=== PATIENT | female | born 1955 | race Two or more races ===

== ENCOUNTER 2019-01-11 00:48 | Emergency (ER) | payer MEDICARE, MEDICAID ==
[2019-01-11] MEDS ORDERED: Sodium Chloride 0.9% 1,000 ML IV ONE (01:21)
[2019-01-11] MEDS ORDERED: Acetaminophen/HYDROcodone 325-5 MG Tab PO ONE ×2 (01:30→04:50)
--- NOTE | 2019-01-11 01:30 | EDM.PDOC ---
ED HPI GENERAL MEDICAL PROBLEM - General Chief Complaint: General Stated Complaint: MEDICAL VIA [facility] Time Seen by Provider: 01/11/19 01:25 Source of Information: Reports: Patient, Old Records, RN History Limitations: Reports: No Limitations - History of Present Illness INITIAL COMMENTS - FREE TEXT/NARRATIVE: 63 yo female recently had knee replacement in [place] and is in a [facility] until she recovers and can return to her shelter. She has AODM and since entering the [facility] her blood sugars have been running high much of the time, possibly getting worse. She was sent to the [facility] for BS over 500 the last couple of times she was checked. Extra insulin has been given, but she is still running high. No fevers reported by the [facility]. Onset: Gradual Onset Date: 01/09/19 Duration: Day(s):, Getting Worse Location: Reports: Generalized Quality: Reports: Ache (L knee since her surgery) Severity: Moderate Improves with: Reports: Medication Worsens with: Reports: Movement Context: Reports: Other (recent L knee replacement) Associated Symptoms: Reports: Malaise. 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 below) (usual meds + sliding scale insulin) Left Knee Pain Score (Numeric/FACES): 10 - Related Data Allergies Allergy/AdvReac Type Severity Reaction Status Date / Time mesoridazine [Mesoridazine] Allergy Cannot Verified 04/29/18 07:32 Remember molindone [Molindone] Allergy Cannot Verified 04/29/18 07:32 Remember Penicillins Allergy Cannot Verified 04/29/18 07:32 Remember Home Meds: Home Meds Polyethylene Glycol 3350 [Miralax] 1 scoop PO DAILY 01/25/14 [History] atorvaSTATin [Lipitor] 20 mg PO DAILY 01/25/14 [History] cloZAPine [Clozaril] 450 mg PO BEDTIME 01/25/14 [History] Acetaminophen [Tylenol] 325 mg PO Q6HR PRN #1 tab 02/21/14 [Rx] Fenofibrate [Lofibra] 160 mg PO DAILY #1 tablet 02/21/14 [Rx] Levothyroxine [Synthroid] 50 mcg PO DAILY #1 tab 02/21/14 [Rx] Sertraline HCl [Zoloft] 50 mg PO DAILY #1 tablet 02/21/14 [Rx] Anastrozole 1 mg PO DAILY 09/19/15 [History] Ferrous Sulfate 325 mg PO BID 09/19/15 [History] Vitamin D 1,000 units PO DAILY 09/19/15 [History] Insulin Degludec [Tresiba Flextouch U-100] 30 unit SQ DAILY 04/29/18 [History] Aspirin 325 mg PO BID 01/11/19 [History] Brivaracetam [Briviact] 50 mg PO BID 01/11/19 [History] Hydrocodone/Acetaminophen [Hydrocodon-Acetaminophen 5-325] 1 tab PO ASDIRECTED PRN 01/11/19 [History] Insulin Aspart [NovoLOG] 0 - 10 unit SUBCNJ TID 01/11/19 [History] Pantoprazole Sodium [Protonix] 20 mg PO DAILY 01/11/19 [History] QUEtiapine Fumarate [Quetiapine Fumarate ER] 500 mg PO DAILY 01/11/19 [History] Past Medical History Cardiovascular History: Reports: High Cholesterol Genitourinary History: Reports: Renal Disease Musculoskeletal History: Reports: Osteoarthritis Psychiatric History: Reports: Mood Swings, Schizophrenia Endocrine/Metabolic History: Reports: Diabetes, Type II, Hypothyroidism, Other ( See Below) Other Endocrine/Metabolic History: psychogenic polydipsia - Past Surgical History Female Surgical History: Reports: Mastectomy Musculoskeletal Surgical History: Reports: Joint Replacement, Knee Replacement Social & Family History - Tobacco Use Smoking Status *Q: Former Smoker Used Tobacco, but Quit: Yes Month/Year Tobacco Last Used: 1963 - Caffeine Use Caffeine Use: Reports: Coffee, Soda - Recreational Drug Use Recreational Drug Use: No ED ROS GENERAL - Review of Systems Review Of Systems: See Below Constitutional: Reports: Malaise HEENT: Reports: No Symptoms Respiratory: Reports: No Symptoms Cardiovascular: Reports: No Symptoms Endocrine: Reports: High Glucose GI/Abdominal: Reports: No Symptoms : Reports: No Symptoms Musculoskeletal: Reports: Joint Pain (L knee pain since surgery) Skin: Reports: No Symptoms Neurological: Reports: No Symptoms Psychiatric: Reports: No Symptoms ED EXAM, GENERAL - Physical Exam Exam: See Below Exam Limited By: No Limitations General Appearance: Alert, WD/WN, No Apparent Distress, Lethargic Eye Exam: Bilateral Eye: Normal Inspection Ears: Normal External Exam, Normal Canal, Hearing Grossly Normal, Normal TMs Ear Exam: Bilateral Ear: Auricle Normal, Canal Normal, TM normal Nose: Normal Inspection, No Blood Throat/Mouth: Normal Lips, Normal Oropharynx, Normal Voice, No Airway Compromise , Other (dry oral mucosa) Head: Atraumatic, Normocephalic Neck: Normal Inspection Respiratory/Chest: No Respiratory Distress, Lungs Clear, Normal Breath Sounds, No Accessory Muscle Use Cardiovascular: Regular Rate, Rhythm, No Edema, Tachycardia GI/Abdominal: Normal Bowel Sounds, Soft, Non-Tender, No Distention Back Exam: Normal Inspection. No: CVA Tenderness (R), CVA Tenderness (L) Extremities: Normal Inspection, No Pedal Edema, Limited Range of Motion (L knee due to recent knee replacement), Increased Warmth (L knee). No: Normal Range of Motion, Non-Tender, Pedal Edema, Carissa's Sign, Redness Neurological: Alert, Oriented, CN II-XII Intact, Normal Cognition, No Motor/ Sensory Deficits Psychiatric: Normal Affect, Normal Mood Skin Exam: Warm, Dry, Intact, Normal Color, No Rash Lymphatic: No Adenopathy Course - Vital Signs Last Recorded V/S: Last Vital Signs Temp 36.8 C 01/11/19 00:59 Pulse 99 01/11/19 04:22 Resp 15 01/11/19 04:22 BP 142/83 H 01/11/19 03:27 Pulse Ox 96 01/11/19 04:22 - Orders/Labs/Meds Orders: Active Orders 24 hr Category Date Time Status Cardiac Monitoring [RC] .As Directed Care 01/11/19 01:22 Active Insulin Regular, Human [HumuLIN R] Med 01/11/19 04:45 Once 15 unit SUBCUT ONETIME ONE NS + KCl 20mEq/L [Normal Saline with 20 mEq KCl] 1,000 Med 01/11/19 02:45 Active ml IV ASDIRECTED Medication Orders Potassium Chloride/Sodium Chloride (Normal Saline With 20 Meq Kcl) 1,000 mls @ 500 mls/hr IV ASDIRECTED DARIO Last Admin: 01/11/19 02:46 Dose: 500 mls/hr Labs: Laboratory Tests 01/11/19 01/11/19 01/11/19 Range/Units 01:19 01:20 01:40 WBC 9.5 (4.5-11.0) K/uL RBC 3.94 (3.30-5.50) M/uL Hgb 10.5 L (12.0-15.0) g/dL Hct 33.2 L (36.0-48.0) % MCV 84 (80-98) fL MCH 27 (27-31) pg MCHC 32 (32-36) % Plt Count 371 (150-400) K/uL Sodium (140-148) mmol/L Potassium (3.6-5.2) mmol/L Chloride (100-108) mmol/L Carbon Dioxide (21-32) mmol/L Anion Gap (5.0-14.0) mmol/L BUN (7-18) mg/dL Creatinine (0.6-1.0) mg/dL Est Cr Clr Drug Dosing mL/min Estimated GFR (MDRD) (>60) Glucose (74-106) mg/dL Calcium (8.5-10.1) mg/dL Magnesium 1.6 L (1.8-2.4) mg/dL Troponin I (0.000-0.056) ng/mL TSH, Ultra Sensitive (0.358-3.740) uIU/mL Urine Color Yellow Urine Appearance Clear Urine pH 6.0 (4.5-8.0) Ur Specific [place] 1.010 (1.008-1.030) Urine Protein Negative (NEGATIVE) mg/dL Urine Glucose (UA) >1000 H (NEGATIVE) mg/dL Urine Ketones Negative (NEGATIVE) mg/dL Urine Occult Blood Trace (NEGATIVE) Urine Nitrite Negative (NEGATIVE) Urine Bilirubin Negative (NEGATIVE) Urine Urobilinogen Normal (NORMAL) mg/dL Ur Leukocyte Esterase Negative (NEGATIVE) Urine RBC 0-5 (0-5) Urine WBC 0-5 (0-5) Ur Epithelial Cells Not seen Amorphous Sediment Few Urine Bacteria Not seen Urine Mucus Not seen 01/11/19 01/11/19 01/11/19 Range/Units 01:42 01:42 02:02 WBC (4.5-11.0) K/uL RBC (3.30-5.50) M/uL Hgb (12.0-15.0) g/dL Hct (36.0-48.0) % MCV (80-98) fL MCH (27-31) pg MCHC (32-36) % Plt Count (150-400) K/uL Sodium 135 L (140-148) mmol/L Potassium 4.1 (3.6-5.2) mmol/L Chloride 100 (100-108) mmol/L Carbon Dioxide 27 (21-32) mmol/L Anion Gap 12.1 (5.0-14.0) mmol/L BUN 42 H D (7-18) mg/dL Creatinine 1.6 H (0.6-1.0) mg/dL Est Cr Clr Drug Dosing 29.00 mL/min Estimated GFR (MDRD) 32 L (>60) Glucose 448 H* (74-106) mg/dL Calcium 10.4 H (8.5-10.1) mg/dL Magnesium (1.8-2.4) mg/dL Troponin I < 0.017 (0.000-0.056) ng/mL TSH, Ultra Sensitive 5.969 H (0.358-3.740) uIU/mL Urine Color Urine Appearance Urine pH (4.5-8.0) Ur Specific [place] (1.008-1.030) Urine Protein (NEGATIVE) mg/dL Urine Glucose (UA) (NEGATIVE) mg/dL Urine Ketones (NEGATIVE) mg/dL Urine Occult Blood (NEGATIVE) Urine Nitrite (NEGATIVE) Urine Bilirubin (NEGATIVE) Urine Urobilinogen (NORMAL) mg/dL Ur Leukocyte Esterase (NEGATIVE) Urine RBC (0-5) Urine WBC (0-5) Ur Epithelial Cells Amorphous Sediment Urine Bacteria Urine Mucus Meds: Medications Generic Name Dose Route Start Last Admin Trade Name Freq PRN Reason Stop Dose Admin Potassium Chloride/Sodium Chloride 1,000 mls @ 500 mls/hr 01/11/19 02:45 08/21 02:46 Normal Saline With 20 Meq Kcl IV 500 mls/hr ASDIRECTED DARIO Administration Discontinued Medications Generic Name Dose Route Start Last Admin Trade Name Freq PRN Reason Stop Dose Admin Hydrocodone Bitart/Acetaminophen 2 tab 01/11/19 01:30 01/11/19 01:42 Maynard 325-5 Mg PO 01/11/19 01:31 2 tab ONETIME ONE Administration Sodium Chloride 1,000 mls @ 1,000 mls/hr 01/11/19 01:21 01/11/19 01:39 Normal Saline IV 01/11/19 02:20 1,000 mls/hr .BOLUS ONE Administration Insulin Human Regular 20 unit 01/11/19 01:59 01/11/19 02:08 Humulin R SUBCUT 01/11/19 02:00 20 units ONETIME ONE Administration Potassium Chloride 20 meq 01/11/19 02:00 01/11/19 02:06 Potassium Chloride PO 01/11/19 02:01 20 meq ONETIME ONE Administration Departure - Departure Time of Disposition: 05:00 Disposition: Home, Self-Care 01 Condition: Fair Clinical Impression: Mild dehydration Hyperglycemia due to type 2 diabetes mellitus Qualifiers: Diabetes mellitus fdc insulin use: with attendant child activity use Qualified Code(s): E11.65 - Type 2 diabetes mellitus with hyperglycemia; 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 Discuss with primary care provider if they want to increase her Synthroid dose? - My Orders Last 24 Hours: My Active Orders 01/11/19 01:22 Cardiac Monitoring [RC] .As Directed 01/11/19 02:45 NS + KCl 20mEq/L [Normal Saline with 20 mEq KCl] 1,000 ml IV ASDIRECTED 01/11/19 04:45 Insulin Regular, Human [HumuLIN R] 15 unit SUBCUT ONETIME ONE - Assessment/Plan Last 24 Hours: My Active Orders 01/11/19 01:22 Cardiac Monitoring [RC] .As Directed 01/11/19 02:45 NS + KCl 20mEq/L [Normal Saline with 20 mEq KCl] 1,000 ml IV ASDIRECTED 01/11/19 04:45 Insulin Regular, Human [HumuLIN R] 15 unit SUBCUT ONETIME ONE
[2019-01-11] MEDS ORDERED: Insulin Regular, Human 100 Units/ML 3 ML Vial SUBCUT ONE ×3 (01:59→08:42)
[2019-01-11] MEDS ORDERED: Potassium Chloride 10 MEQ Cap.ER PO ONE (02:00)
[2019-01-11] MEDS ORDERED: NS + KCl 20mEq/L 1,000 ML IV SCH (02:45)
== END 2019-01-11 09:40 | disposition home or self-care (01) ==
LOC: JP.ED 00:48
DX: E11.65 Type 2 diabetes mellitus with hyperglycemia (principal); E86.0 Dehydration; F20.9 Schizophrenia, unspecified; Z88.0 Allergy status to penicillin; Z88.8 Allergy status to other drugs, medicaments and biological substances; Z79.4 Long term (current) use of insulin; E78.00 Pure hypercholesterolemia, unspecified; E03.9 Hypothyroidism, unspecified; Z79.82 Long term (current) use of aspirin; Z87.891 Personal history of nicotine dependence
CPT/HCPCS: 36415; 80048; 81001; 82962; 83735; 84443; 84484; 85027; 96360; 96361; 99283; A9270; J1815; J3480; J7030

== ENCOUNTER 2022-12-13 12:36 | Emergency (ER) | payer MEDICARE, MEDICAID | END 2022-12-13 14:18 | LOC: JP.ED 12:36 | DX: E11.22 Type 2 diabetes mellitus with diabetic chronic kidney disease (principal); N18.30 Chronic kidney disease, stage 3 unspecified; M19.90 Unspecified osteoarthritis, unspecified site; E78.00 Pure hypercholesterolemia, unspecified; Z88.8 Allergy status to other drugs, medicaments and biological substances; Z88.0 Allergy status to penicillin; Z88.5 Allergy status to narcotic agent; Z79.82 Long term (current) use of aspirin; Z79.4 Long term (current) use of insulin | CPT/HCPCS: 36415; 80048; 99283; 99285 ==

== ENCOUNTER 2022-12-14 20:07 | Emergency (ER) | payer MEDICARE, MEDICAID ==
[2022-12-14] MEDS ORDERED: cloNIDine 0.1 MG Tab PO ONE (20:22)
[2022-12-14] MEDS ORDERED: amLODIPine 5 MG Tab PO ONE (21:07)
== END 2022-12-14 21:28 ==
LOC: JP.ED 20:07
DX: I10 Essential (primary) hypertension (principal); E78.00 Pure hypercholesterolemia, unspecified; M19.90 Unspecified osteoarthritis, unspecified site; E11.9 Type 2 diabetes mellitus without complications; E03.9 Hypothyroidism, unspecified; Z88.5 Allergy status to narcotic agent; Z88.8 Allergy status to other drugs, medicaments and biological substances; Z88.0 Allergy status to penicillin; Z79.82 Long term (current) use of aspirin; Z79.4 Long term (current) use of insulin; Z79.899 Other long term (current) drug therapy
CPT/HCPCS: 36415; 80048; 85025; 99284; A9270; 99283